=== PATIENT | female | born 1955 | race Caucasian/White ===

== ENCOUNTER 2018-03-14 13:35 | Inpatient (IN) | payer OTHER ==
[~2018-03-14] VITALS: Ht 167.6 cm; Wt 80.1 kg
--- NOTE | 2018-03-14 14:00 | NUR ---
ASSUMED CARE OF PATIENT FROM TRIAGE ROOM AND ESCORTED PATIENT TO CT SCANNER IMMEDIATELY FROM TRIAGE ROOM AFTER CODE NEURO WAS CALLED. CT HEAD WITHOUT CONTRAST WAS PERFORMED IMMEDIATELY AND THEN PIV WAS INSERTED AND CT W/CONTRAST WAS PERFORMED. PATIENT WAS TAKEN VIA GURNEY TO HER ROOM, RM 3 IN ED. PT RESTING WITH NO COMPLAINTS. CALL BUTTON IN LAP. PATIENT ON RN CIRCULATING AND CONTINUOUS SPO2 AND BP CUFF APPLIED. PATIENT IN NORMAL SINUS RHYTHM.
[2018-03-14] MEDS ORDERED: OMNIPAQUE 350 MG/ML, 100ML BOTTLE ONE (14:36)
[2018-03-14 14:45] LABS: BASOPHILS # (AUTO) 0.04 x10^3/uL (0-0.1); BASOPHILS % (AUTO) 1 % (0-1); EOSINOPHILS # (AUTO) 0.13 x10^3/uL (0-0.4); EOSINOPHILS % (AUTO) 1 % (1-7); LYMPHOCYTES # (AUTO) 2.42 x10^3/uL (1-3.4); LYMPHOCYTES % (AUTO) 27 % (22-44); MD NO; MEAN CORPUSCULAR HEMOGLOBIN 30.9 pg (27.0-34.8); MEAN CORPUSCULAR VOLUME 90.9 fL (80-100); MEAN PLATELET VOLUME 7.8 fL (7.4-10.4); MONOCYTES # (AUTO) 0.56 x10^3/uL (0.2-0.8); MONOCYTES % (AUTO) 6 % (2-9); NEUTROPHILS # (AUTO) 5.72 x10^3/uL (1.8-6.8); NEUTROPHILS % (AUTO) 65 % (42-75); PLATELET COUNT 292 x10^3/uL (130-400); RED BLOOD COUNT 4.49 x10^6/uL (3.82-5.3); RED CELL DISTRIBUTION WIDTH 13.4 % (9.6-15.2)
[2018-03-14] MEDS ORDERED: MULT-6 PO (14:47)
[2018-03-14] MEDS ORDERED: CHOL5000 PO (14:48)
[2018-03-14 14:54] LABS: INTERNATIONAL NORMALIZED RATIO 1.04 (0.93-1.1)
[2018-03-14] MEDS ORDERED: TEMAZEPAM 15 MG CAPSULE PO PRN (16:00)
[2018-03-14] MEDS ORDERED: ONDANSETRON 2MG/ML, 2ML IVPush PRN (16:00)
[2018-03-14] MEDS ORDERED: ACETAMINOPHEN 325 MG TABLET PO PRN (16:00)
--- NOTE | 2018-03-14 16:15 | NUR ---
[facility] TELPHONE HAND-OFF REPORT GIVEN TO ALONZO FALLON. PT READY TO GO TO HOSPITAL ROOM.
--- NOTE | 2018-03-14 16:27 | NUR ---
PATIENT TO MRI AT THIS TIME. MRI TO TAKE PATIENT TO HER HOSPITAL ROOM.
[2018-03-14 17:09] VITALS: BP 143/86
[2018-03-14] MEDS ORDERED: ENOXAPARIN 40 MG/0.4 ML SQ SCH (17:30)
[2018-03-14 19:08] LABS: HCT (SEDRATE) 41.9 % (34.6-47.8)
[2018-03-14 19:30] VITALS: BP 120/75
[2018-03-14] MEDS ORDERED: ATORVASTATIN 40 MG TABLET PO SCH (21:00)
[2018-03-15 02:57] VITALS: BP 105/68
[2018-03-15 06:49] LABS: CHOL/HDL RATIO 3.7; LDL/HDL RATIO 2.4 (0.5-3.0)
[2018-03-15 07:13] LABS: CREATININE 0.89 mg/dL (0.55-1.02)
[2018-03-15 07:16] VITALS: BP 108/70
[2018-03-15] MEDS ORDERED: ASPIRIN 81 MG TABLET CHEW PO/NG SCH (09:00)
[2018-03-15 14:33] VITALS: BP 103/67
[2018-03-15] MEDS ORDERED: ATOR40TA78 PO (17:19)
[2018-03-15] MEDS ORDERED: ASPI-515 PO/NG (17:19)
== END 2018-03-15 18:45 | disposition home or self-care (01) | DRG 65 ==
LOC: SUATTDRO 15:14 → ED 15:29 → EDIP 15:49 → 5SO 16:59
PROVIDERS: ADMIT Internal Medicine; ATTEND Internal Medicine
DX: I63.9 Cerebral infarction, unspecified (principal); G45.3 Amaurosis fugax; H50.9 Unspecified strabismus; H54.7 Unspecified visual loss; E55.9 Vitamin D deficiency, unspecified; H53.40 Unspecified visual field defects; R29.701 NIHSS score 1; Z88.1 Allergy status to other antibiotic agents; H53.8 Other visual disturbances; Z79.82 Long term (current) use of aspirin; Z82.49 Family history of ischemic heart disease and other diseases of the circulatory system; Z90.89 Acquired absence of other organs
CPT/HCPCS: 36415; 70450; 70496; 70498; 70551; 80047; 80061; 81241; 82565; 82962; 83090; 85025; 85300; 85303; 85306; 85610; 85651; 85730; 86038; 86147; 93005; 93306; G0378; Q9967; 92523-GN

== ENCOUNTER 2019-03-15 07:40 | Emergency (ER) | payer OTHER ==
[~2019-03-15] VITALS: Ht 167.6 cm; Wt 80.9 kg
[~2019-03-15 07:40] MED LIST: ASPI-515 PO/NG; ATOR40TA78 PO; CHOL5000 PO; MULT-6 PO
[2019-03-15] MEDS ORDERED: methylPREDNISolone SOD SUCC 125 MG/2 ML IVPush ONE (08:30)
[2019-03-15] MEDS ORDERED: DIPHENHYDRAMINE 50 MG/ML, 1ML IVPush ONE (08:30)
[2019-03-15] MEDS ORDERED: FAMOTIDINE 20 MG/2 ML IVPush ONE (08:30)
[2019-03-15] MEDS ORDERED: FAMOTIDINE 20 MG/2 ML ONE (08:35)
[2019-03-15] MEDS ORDERED: DIPHENHYDRAMINE 50 MG/ML, 1ML ONE (08:35)
[2019-03-15] MEDS ORDERED: methylPREDNISolone SOD SUCC 125 MG/2 ML ONE (08:35)
--- NOTE | 2019-03-15 09:05 | NUR ---
IV STARTED. PT WALKING TO BATHROOM, PT ABLE TO AMBULATE STEADILY IN HALLWAY. PT MEDICATED PER EMAR. PT REPORTS SOME IMPROVEMENT IN BILAT EYE SWELLING, LEFT EYE IS STILL MORE SWOLLEN THEN RIGHT.
[2019-03-15 09:31] VITALS: BP 129/72
--- NOTE | 2019-03-15 09:36 | NUR ---
PT REPORTS IMPROVMENT IN SKIN, REDNESS HAS RESOLVED. PT BILAT EYES REMAIN PUFFY, LEFT > RIGHT. PT VSS. ERP AWARE OF PT CURRENT CONDITION.
== END 2019-03-15 09:57 | disposition home or self-care (01) ==
LOC: ED 09:08
DX: T78.49XA Other allergy, initial encounter (principal); R21 Rash and other nonspecific skin eruption; X58.XXXA Exposure to other specified factors, initial encounter
CPT/HCPCS: 96374; 96375; 99283; J1200; J2930; J3490